=== PATIENT | male | born 1985 | race African-American/Black ===

== ENCOUNTER → 2021-02-05 | Emergency (ER) | payer OTHER ==
[~2021-02-05] VITALS: Ht 182.9 cm; Wt 95.3 kg
[~2021-02-05] MED LIST: KETO10TA2 PO
== END | disposition home or self-care (01) ==
LOC: ER 09:31
DX: K03.81 Cracked tooth (principal); X58.XXXA Exposure to other specified factors, initial encounter; Y93.89 Activity, other specified; Y92.59 Other trade areas as the place of occurrence of the external cause; Y99.9 Unspecified external cause status